=== PATIENT | male | born 1955 | race Two or more races ===

== ENCOUNTER 2019-05-15 21:34 | Emergency (ER) | payer OTHER ==
[~2019-05-15] VITALS: Ht 172.7 cm; Wt 77.1 kg
[2019-05-15] MEDS ORDERED: TUSNEL LIQUID178 ML PO (23:49)
[2019-05-15] MEDS ORDERED: OSEL75CA PO (23:49)
[2019-05-15] MEDS ORDERED: AMOX-CLAV 875-1 EACH PO (23:49)
[2019-05-15] MEDS ORDERED: PEPCID AC20 MG PO (23:49)
== END 2019-05-16 00:10 | disposition home or self-care (01) ==
LOC: ER 21:34
DX: B34.8 Other viral infections of unspecified site (principal)